=== PATIENT | female | born 1950 | race Caucasian/White ===

== ENCOUNTER 2019-09-26 11:41 | Emergency (ER) | payer OTHER, MEDICAID ==
[~2019-09-26] VITALS: Ht 124.5 cm; Wt 55.0 kg
[2019-09-26 11:43] VITALS: BP 153/92
--- NOTE | 2019-09-26 12:00 | NUR ---
PT AMBULATED TO BED 11
[2019-09-26] MEDS ORDERED: METF500T PO (12:03)
--- NOTE | 2019-09-26 12:11 | NUR ---
c/o 3 left sided jaw/ear pain over area of parotid gland x 2 days. Erythema, swelling, pain. States unable to open jaw fully. Subjective fever yesterday. Denies n/v. No difficulty breathing. hx-[id number], DM accu-127 pain 10/26
--- NOTE | 2019-09-26 12:16 | NUR ---
Dr martinez evaluating pt at bedside
[2019-09-26] MEDS ORDERED: CEPHALEXIN 500 MG CAP PO ONE (12:20)
[2019-09-26] MEDS ORDERED: SULFAMETH/TRIMETH DS 800/160MG 1 TAB PO ONE (12:20)
[2019-09-26] MEDS ORDERED: KETOROLAC 60 MG/2 ML VIAL IM ONE (12:20)
--- NOTE | 2019-09-26 12:28 | NUR ---
Swallowed ordered abx pills with water. No dysphagia
--- NOTE | 2019-09-26 12:50 | NUR ---
Patient discharged with v/s stable. Written and verbal after care instructions given and explained. Patient alert, oriented and verbalized understanding of instructions. Ambulatory with steady gait. All questions addressed prior to discharge. ID band removed. Patient advised to follow up with PMD. Rx of MOTRIN, KEFLEX, AND BACTRIM given. Patient educated on indication of medication including possible reaction and side effects. Opportunity to ask questions provided and answered.
[2019-09-26 12:51] VITALS: BP 153/92
== END 2019-09-26 12:50 | disposition home or self-care (01) ==
LOC: MED 11:41
DX: L03.211 Cellulitis of face (principal); E11.9 Type 2 diabetes mellitus without complications; I10 Essential (primary) hypertension; Z79.84 Long term (current) use of oral hypoglycemic drugs
CPT/HCPCS: 82948; 96372; 99283; J1885